=== PATIENT | male | born 1995 | race Caucasian/White ===

== ENCOUNTER 2019-05-13 16:44 | Emergency (ER) | payer OTHER, SELFPAY ==
[2019-05-13 16:45] VITALS: BP 144/41; PULSE 114; RESP 15; TEMP 36.9; O2SAT 98; BMI 28.0
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
[2019-05-13] MEDS: fentaNYL 100 MCG/2 ML Ampul 50 MCG IM (17:24)
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
[2019-05-13 17:45] VITALS: BP 160/62; PULSE 96; RESP 16; O2SAT 97
[2019-05-13 18:00] VITALS: BP 160/62; PULSE 96; RESP 16; O2SAT 97
[2019-05-13 19:01] VITALS: RESP 14
[2019-05-13 19:41] VITALS: BP 140/83; PULSE 85; RESP 15; O2SAT 98
== END 2019-05-13 19:42 | disposition home or self-care (01) ==
PROVIDERS: Emergency Provider Physician Assistant Medical
DX: S00.81XA Abrasion of other part of head, initial encounter (principal); V86.49XA Person injured while boarding or alighting from other special all-terrain or other off-road motor vehicle, initial encounter; Y93.I9 Activity, other involving external motion; Y92.9 Unspecified place or not applicable; Y99.8 Other external cause status; M54.2 Cervicalgia; M25.551 Pain in right hip; M54.5 Low back pain
CPT/HCPCS: 70450; 72100; 72125; 73502; 96372; 99282

== ENCOUNTER 2019-05-19 21:17 | Emergency (ER) | payer OTHER, SELFPAY ==
[2019-05-19 21:18] VITALS: BP 164/81; PULSE 123; RESP 18; TEMP 36.5; O2SAT 99; BMI 29.3
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
[2019-05-19] MEDS: Naproxen 500 MG Tablet PO (21:40)
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
[2019-05-19 22:18] VITALS: RESP 16
== END 2019-05-19 22:18 | disposition home or self-care (01) ==
PROVIDERS: Emergency Provider Emergency Medicine
DX: S40.021A Contusion of right upper arm, initial encounter (principal); V86.95XA Unspecified occupant of 3- or 4- wheeled all-terrain vehicle (ATV) injured in nontraffic accident, initial encounter; Y93.I9 Activity, other involving external motion; Y92.9 Unspecified place or not applicable
CPT/HCPCS: 73060; 73080; 73090; 99283

== ENCOUNTER 2019-11-12 18:52 | Emergency (ER) | payer OTHER, SELFPAY ==
[2019-11-12 18:53] VITALS: BP 146/90; PULSE 99; RESP 16; TEMP 36.3; O2SAT 100; BMI 25.8
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
--- NOTE | 2019-11-12 19:01 | ED.VIS.UPPEX ---
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 He had pain immediately but it was mild. The next day, at work, he was doing lots of repetitive motions with his right hand/wrist, and the pain has significantly been worse since then. Now whenever he moves his wrist he can feel creaking along with pain. [id number]. Past Medical History - Allergies and Home Meds Allergies/Adverse Reactions: Allergies No Known Allergies Allergy (Verified 11/12/19 18:53) Primary Care Physician: Care Physician,No Primary [Primary Care Provider] - Past Medical History: None Surgical History: no surgical history Smoking Status: Never smoker Review of Systems General: Denies: Chills, Fever, Sweats Musculoskeletal: Reports: Extremity Pain. Denies: Swelling Skin: Denies: Rash, Wounds Neurological: Denies: Headache, Weakness, Numbness Physical Exam Vital Signs/Narrative: Vital Signs Temp Pulse Resp BP Pulse Ox 11/12/19 18:53 97.3 F L 99 16 146/90 H 100 General: Well nourished, Well developed, - - Well-appearing no distress Head: Normocephalic, Atraumatic Extremeties: Limited range of motion of the right wrist due to pain. Able to supinate and pronate, but this creates significant pain as well. There is no tenderness at the distal radius or ulna, however there is tenderness in the area of the extensor carpi radialis tendon, associated ligaments, and the area of the carpus, but there is no scaphoid tenderness or pain with axial loading of the thumb. No bony tenderness throughout the hand or fingers. No deformities or swelling. Normal pulse, neurovascular intact distally. Skin: Normal color, No rash, No Trauma Neurological: Alert, Oriented x3, Cranial nerves II-XII grossly intact, Normal Strength, Normal Sensation, Normal Gait Psychological: Normal affect, Normal Mood Diagnostic/Tx/Re-eval Clinical Impression(s) from Imaging Studies Wrist X-Ray 11/12/19 19:00 IMPRESSION: No acute fracture or dislocation. There is no major interval change. Electronically Signed: Manjit Singh DO at 19:22 EDT Tel [phone], Service support , - Medical Decision Making X-rays unremarkable, patient is reassured. His history and exam are consistent with a sprain. The creaking he is feeling is probably fluid from inflammation. I recommend anti-inflammatories and a Velcro splint which he was given. ED Disposition - Plan for ED Patient: Disposition: Home or Assisted Living Diagnosis: Right wrist sprain Instructions: ED Sprain Wrist Prescriptions: Ibuprofen 600 mg PO Q8H PRN #20 tab PRN Reason: pain Prescription Printed Referrals: Morro Cota DO [STAFF PHYSICIAN] - 10-14 Days if not better
== END 2019-11-12 19:53 | disposition home or self-care (01) ==
PROVIDERS: Emergency Provider Emergency Medicine
DX: S63.501A Unspecified sprain of right wrist, initial encounter (principal); W31.89XA Contact with other specified machinery, initial encounter; Y93.89 Activity, other specified; Y92.9 Unspecified place or not applicable
CPT/HCPCS: 73110; 99283

== ENCOUNTER 2020-01-13 18:17 | Inpatient (IN) | payer OTHER, SELFPAY ==
[2020-01-13 18:18] VITALS: BP 143/102; PULSE 104; RESP 16; TEMP 36.6; O2SAT 98; BMI 26.6
--- NOTE | 2020-01-13 18:35 | CT_ITS ---
STUDY: CT ABDOMEN AND PELVIS WITHOUT CONTRAST REASON FOR EXAM: Male, 25 years old. LEFT FLANK PAIN X 1 HOUR RADIATION DOSAGE (If Supplied By Facility): CTDIvol = ( 6.42 ) mGy, DLP = ( 636.75 ) mGycm TECHNIQUE: Transaxial images were obtained from the dome of the diaphragm to the symphysis pubis without oral contrast, and without intravenous contrast. Sagittal and coronal images were reconstructed. Individualized dose optimization techniques were used for this CT. COMPARISON: None. FINDINGS: The visualized lung bases are unremarkable. The visualized portions of the heart are within normal limits. Normal liver. Normal gallbladder and extrahepatic biliary system. Normal spleen. Normal pancreas. Normal bilateral adrenal glands. There is a 3 mm calculus of the distal left ureter on image 148 with mild left hydronephrosis. There are calculi in the bilateral kidneys measuring up to 4.6 mm. Normal visualized stomach. Normal small intestine. Normal colon. The appendix is visualized and appears normal. Normal abdominal aorta. Normal inferior vena cava. Normal retroperitoneum. Normal urinary bladder. Normal abdominal wall. There is a Schmorl''s node of the anterior inferior L2 endplate degenerative disc narrowing at L2-L3, stable. CT/Abdomen/Pelvis without Cont IMPRESSION: Distal left ureter calculus (3 mm) with mild hydronephrosis. Bilateral nephrolithiasis. Electronically Signed: Fernie Mcclelland MD ([place]) at 19:24 EST , Service support ,
[2020-01-13 18:39] LABS: Mucous, Urine 0 SEEN /hpf (<or=2+); Squamous Epithelial Cells - UA 0 SEEN /hpf (0-5)
[2020-01-13 18:43] LABS: Absolute Lymphocyte Count 2.89 X10^3/uL (0.83-4.51); Absolute Neutrophil Count 7.3 X10^3/uL (2.0-7.7); Basophil# 0.04 X10^3/uL; Basophil% 0.4 % (0-1); Color, Urine Yellow (Yellow); Eosinophil# 0.08 X10^3/uL; Eosinophils% 0.7 % (0-5); Glucose, Dipstick Normal (Normal); Hematocrit 43.7 % (40-54); Ketone-Dipstick Negative (Negative); Leukocyte Esterase-Dipstick Negative /ul (Negative); Lymphocyte # 2.89 X10^3/ul (4.0); Lymphocyte % 25.9 % (19-41); Mean Corp Hgb Conc 34.3 g/dL (32-36); Mean Corpuscular Hgb 31.7 pg (27.0-32.0); Mean Corpuscular Volume 92.4 fL (80-94); Mean Platelet Vol. 9.6 fl (6.2-12.0); Monocyte# 0.83 X10^3/uL; Monocyte% 7.4 % (0-10); NRBC Flagged by Analyzer 0 % (0-5); Neutrophil % 65.3 % (47-70); Nitrite-Dipstick Negative (Negative); Occult Blood-Urine 250 /ul (Negative); Platelet Count 311 K/mm3 (150-450); Protein-Dipstick 15 mg/dl (Negative); RBC Distribution Width SD 40.7 fl (35.1-43.9); Red Blood Count 4.73 M/mm3 (4.6-6.2); Specific Gravity, Urine 1.015 (1.002-1.030); Urine Bilirubin Dipstick Negative (Negative); Urine Clarity Clear (Clear); Urine Urobilinogen Normal (Normal); Urine pH 6.5 (5.0 - 8.0); White Blood Count 11.2 K/mm3 (4.4-11.0)
[2020-01-13] MEDS: 0.9% Normal Saline 1,000 ML 250 ML IV (18:46)
[2020-01-13] MEDS: Morphine 4 MG/ML Syringe IV ×2 (18:47→21:26)
[2020-01-13] MEDS: Ketorolac 15 MG/ML Vial IV (18:47)
[2020-01-13] MEDS: Ondansetron 4 MG/2 ML Vial IV (18:47)
[2020-01-13 18:49] LABS: Bacteria 1+ /hpf (None Seen); Red Blood Cells-Urine 0-5 SEEN /hpf (0-5); White Blood Cells 25-50 SEEN /hpf (0-5)
[2020-01-13 18:54] LABS: Anion Gap 5 (5-15); BUN 16 mg/dL (7-18); BUN/Creat Ratio 12.3 RATIO (10-20); Calcium,Total 9.3 mg/dL (8.5-10.1); Chloride 109 mmol/L (98-107); EST Glomerular Filtration Rate 72 mL/min (>60); Est Glom Filt Rate - Afr Amer 87 mL/min (>60); Estimated Creatinine Clearance 87.62 ml/min; Glucose 112 mg/dL (74-106); Sodium Level 143 mmol/L (136-145)
--- NOTE | 2020-01-13 19:14 | ED.VIS.GEN ---
History of Present Illness Chief Complaint: Flank Pain Informant: Patient Onset: Hours Context: Sudden Onset Timing: Continuous, Waxes and wanes Quality: Pain Location: Left flank Current Severity: Severe Maximum Severity: Severe Worsened by: Nothing Relieved by: Nothing Associated Symptoms: Nausea and urgency Narrative: Patient is a 25-year-old male presents with acute colicky left flank pain that radiates to the left lower quadrant with urgency and nausea. He has no history of renal or ureterolithiasis. He denies dysuria or hematuria. He denies testicular pain. He denies trauma, rash or any skin lesions. He denies prior history of pain similar to what he is experiencing now. He denies fever, chills or night sweats. Prior similar symptoms: No Recent Illness/Hospitalization: No - Past Medical History (1) No significant past medical history Status: Acute Past Medical History - Allergies and Home Meds Allergies/Adverse Reactions: Allergies No Known Allergies Allergy (Verified 01/13/20 18:20) Primary Care Physician: Care Physician,No Primary [Primary Care Provider] - Prior records reviewed: No Surgical History: no surgical history Lives: Alone Smoking Status: Never smoker Alcohol: None Drugs: None Review of Systems General: Reports: Sweats. Denies: Chills, Fever, Malaise, Subjective, Weight loss Eyes: Denies: Visual changes - bilaterally, Blurred Vision - bilaterally ENT: Denies: Rhinorrhea, Sore throat Cardiovascular: Denies: Chest pain, Palpitations Respiratory: Denies: Dyspnea, Cough, Dyspnea on exertion Gastrointestinal: Reports: Abdominal pain, Nausea. Denies: Vomiting, Diarrhea, Melena, Hematochezia Genitourinary: Reports: - - Positive urgency. Denies: Dysuria, Hematuria, Frequency Musculoskeletal: Reports: Back pain. Denies: Myalgias, Arthralgias, Neck pain, Swelling, Extremity Pain Skin: Denies: Rash, Wounds Neurological: Denies: Headache, Weakness Hematologic: Denies: Easy bruising, Easy bleeding Physical Exam Vital Signs/Narrative: Vital Signs Temp Pulse Resp BP Pulse Ox 01/13/20 18:18 97.9 F 104 H 16 143/102 H 98 Inital Vital Signs reviewed: Yes General: Well nourished, Well developed, Acute Distress Head: Normocephalic, Atraumatic Eyes: Perrl, EOMI ENT: Moist mucous membranes, No rhinorrhea Neck: Supple, Nontender Cardiovascular: Regular rate, Regular rhythm, No murmurs, Normal S1, Normal S2 Respiratory: No distress, CTA bilaterally, Chest nontender Abdomen: Soft, Nontender, Nondistended, Normal bowel sounds, No masses Back: Nontender, Normal Inspection, CVA tenderness Extremities: Nontender, No edema Skin: Normal color, No rash, No Trauma. Negative for: Cyanosis, Diaphoresis, Jaundice Neurological: Alert, Oriented x3, Cranial nerves II-XII grossly intact, Normal Strength, Normal Sensation Psychological: Normal affect, Normal Mood Diagnostic/Tx/Re-eval Impressions Abdomen/Pelvis CT 01/13/20 18:35 IMPRESSION: Distal left ureter calculus (3 mm) with mild hydronephrosis. Bilateral nephrolithiasis. Electronically Signed: Fernie Mcclelland MD ([place]) at 19:24 EST , Service support , 01/13/20 18:35 Abdomen/Pelvis without Cont [CT] Stat Laboratory Results 01/13/20 01/13/20 01/13/20 18:35 18:35 18:35 WBC 11.2 H RBC 4.73 Hgb 15.0 Hct 43.7 MCV 92.4 MCH 31.7 MCHC 34.3 RDW Std Deviation 40.7 RDW Coeff of Timothy 12.0 Plt Count 311 MPV 9.6 Immature Gran % (Auto) 0.300 Neut % (Auto) 65.3 Lymph % (Auto) 25.9 [place] % (Auto) 7.4 Eos % (Auto) 0.7 Baso % (Auto) 0.4 Absolute Neuts (auto) 7.3 Absolute Lymphs (auto) 2.89 Nucleated RBC % 0 Sodium 143 Potassium 4.0 Chloride 109 H Carbon Dioxide 29.0 Anion Gap 5 BUN 16 Creatinine 1.30 Estim Creat Clear Calc 87.62 Est GFR (MDRD) Af Amer 87 Est GFR (MDRD) Non-Af 72 BUN/Creatinine Ratio 12.3 Glucose 112 H Calcium 9.3 Urine Color Yellow Urine Clarity Clear Urine pH 6.5 Ur Specific [place] 1.015 Urine Protein 15 H Urine Glucose (UA) Normal Urine Ketones Negative Urine Occult Blood 250 H Urine Nitrite Negative Urine Bilirubin Negative Urine Urobilinogen Normal Ur Leukocyte Esterase Negative Urine RBC 0-5 SEEN Urine WBC 25-50 SEEN Ur Squamous Epith Cells 0 SEEN Urine Bacteria 1+ Urine Mucus 0 SEEN White count still elevated which may be due to pain. Urine does reveal pyuria and bacteria. Culture was sent. He was treated with IV antibiotics. On reassessment at 2039. Patient appears uncomfortable. He states the pain is up to an 8. Will give additional IV medication and consult urology for admission. - Medical Decision Making Patient presents with abrupt left flank pain concern patient has obstructing ureteral stone. CT of the abdomen pelvis without contrast was ordered as well as appropriate blood work and UA. He was medicated with 50 mg of Toradol IV push, 4 mg of morphine IV push and 4 mg of Zofran IV push. ED Disposition - Plan for ED Patient: Disposition: Acute Care [facility] Diagnosis: Hydronephrosis with urinary obstruction due to ureteral calculus, Urinary tract infection Referrals: Care Physician,No Primary [Primary Care Provider] -
[2020-01-13] MEDS: Tamsulosin HCl 0.4 MG Capsule PO (21:27)
[2020-01-13] MEDS: Ceftriaxone 1 GM/50 ML BAG IV (21:27)
[2020-01-13 21:35] VITALS: BP 142/80; PULSE 88; RESP 18; TEMP 37.2; O2SAT 99
[2020-01-13 22:05] VITALS: BMI 26.0
[2020-01-13 22:07] VITALS: BP 130/85; PULSE 79; RESP 16; TEMP 36.4; O2SAT 98
[2020-01-13 22:20] VITALS: BMI 26.1
[2020-01-13] MEDS: 0.9% Normal Saline 1,000 ML 150 ML IV (22:56)
[2020-01-14] MEDS: Morphine 2 MG/ML Syringe IV ×2 (01:19→05:58)
[2020-01-14 03:00] VITALS: BP 122/74; PULSE 66; RESP 16; TEMP 36.5; O2SAT 100
[2020-01-14] MEDS: 0.9% Normal Saline 1,000 ML 150 ML IV (04:51)
[2020-01-14] MEDS: Ketorolac 15 MG/ML Vial IV (06:00)
--- NOTE | 2020-01-14 06:00 | RAD_ITS ---
STUDY: X-RAY - ABDOMEN/PELVIS REASON FOR EXAM: Male, 25 years old. LT SIDED KIDNEY STONE TECHNIQUE: Single AP view of the abdomen / pelvis. COMPARISON: None. FINDINGS: Normal visualized lung bases. There is a moderate amount of colonic fecal material. 3 mm calculus is seen in the lower pole calyx of the left kidney. Normal soft tissue structures. Normal visualized osseous structures. RAD/Abdomen Single View IMPRESSION: 3 mm calculus is seen in the inferior pole calyx of the left kidney. Electronically Signed: Edgar Singh, at 13:44 EST , Service support ,
--- NOTE | 2020-01-14 07:25 | HP.PCM_ITS ---
Problem List (1) Hydronephrosis with urinary obstruction due to ureteral calculus Status: Acute History of Present Illness Date of Admission: 01/13/20 Chief Complaint: Small kidney stone The patient is a 25 year old male presented to the emergency room with severe pain from a 3 mm stone distal right ureter he was admitted for pain control as his pain which is out of control emergency room KUB today no clear stone seen on my review of the KUB he is doing much better this morning not sure if he is passed a stone but I think he can go home with pain medicine to expect expectantly watch and passed the stone. Past Medical History Allergies No Known Allergies Allergy (Verified 01/13/20 18:20) Home Medications: Ambulatory Orders Medication Instructions Recorded NK 01/13/20 Surgical History: no surgical history Lives: Alone Smoking Status: Never smoker Tobacco Use: Non-smoker Alcohol: None Drugs: None Review of Systems Constitutional: Denies: Chills, Fever, Weight Change HEENT: Denies: Head Aches, Sinus Congestion, Sinus Drainage Cardiovascular: Denies: Chest Pain, Palpitations Respiratory: Denies: Cough, Shortness of breath at rest, Sputum production Gastrointestinal: Denies: Abdominal Pain, Nausea, Vomiting Genitourinary: Denies: Dysuria Musculoskeletal: Denies: Joint Pain, Joint Tenderness Skin: Denies: Rash, Wounds Neurological: Denies: Numbness, Tingling, Focal weakness Psychiatric: Denies: Anxiety, Depression, Homicidal Ideations, Suicidal Ideations Hematologic/ Lymphatic: Denies: Easy Bruising, Easy Bleeding VTE Information - Inpt Only VTE Present on Admission: No Patient Problems: Active and Suspected Problems No significant past medical history (Acute) Hydronephrosis with urinary obstruction due to ureteral calculus (Acute) Urinary tract infection (Acute) - Physical Exam Vitals/I&O's: Vital Signs Temp Pulse Resp BP Pulse Ox 97.7 F L 66 16 122/74 H 100 01/14/20 03:00 01/14/20 03:00 01/14/20 03:00 01/14/20 03:00 01/14/20 03:00 Oxygen Delivery Method Room Air Weight: 80.1 kg Body Mass Index (BMI) 26.0 Intake and Output for Last 24 Hours 01/12/20 01/13/20 01/14/20 23:59 23:59 23:59 Intake Total 1050 / 1550 1737.5 / 1737.5 Output Total 1900 / 1900 Balance 1050 / 450 -162.5 / -162.5 General: Alert, Oriented x3, Cooperative HEENT: Atraumatic, PERRLA, EOMI, Normocephalic Neck: Supple, No JVD, Negative Carotid Bruits Lungs: Clear to auscultation, Normal air movement Cardiovascular: Regular rate, No murmurs Abdomen: Bowel Sounds Present, Soft, Non Tender Extremities: No edema, Capillary Refill Less than 3 Seconds Skin: No rashes, No breakdown Musculoskeletal: No Tenderness to Palpation of Joints or Extremities Neurological: Cranial nerves II-XII grossly intact Psych/Mental Status: Normal Affect, Appropriate Laboratory Results 01/13/20 18:35: WBC 11.2 H, RBC 4.73, Hgb 15.0, Hct 43.7, MCV 92.4, MCH 31.7, MCHC 34.3, RDW Std Deviation 40.7, RDW Coeff of Timothy 12.0, Plt Count 311, MPV 9.6, Immature Gran % (Auto) 0.300, Neut % (Auto) 65.3, Lymph % (Auto) 25.9, [place] % (Auto) 7.4, Eos % (Auto) 0.7, Baso % (Auto) 0.4, Absolute Neuts (auto) 7.3, Absolute Lymphs (auto) 2.89, Nucleated RBC % 0 01/13/20 18:35: Sodium 143, Potassium 4.0, Chloride 109 H, Carbon Dioxide 29.0, Anion Gap 5, BUN 16, Creatinine 1.30, Estim Creat Clear Calc 87.62, Est GFR (MDRD) Af Amer 87, Est GFR (MDRD) Non-Af 72, BUN/Creatinine Ratio 12.3, Glucose 112 H, Calcium 9.3 01/13/20 18:35: Urine Color Yellow, Urine Clarity Clear, Urine pH 6.5, Ur Specific [place] 1.015, Urine Protein 15 H, Urine Glucose (UA) Normal, Urine Ketones Negative, Urine Occult Blood 250 H, Urine Nitrite Negative, Urine Bilirubin Negative, Urine Urobilinogen Normal, Ur Leukocyte Esterase Negative, Urine RBC 0-5 SEEN, Urine WBC 25-50 SEEN, Ur Squamous Epith Cells 0 SEEN, Urine Bacteria 1+, Urine Mucus 0 SEEN Current Medications Sodium Chloride () 250 mls @ 15 mls/hr IV .[id number] PRN PRN Reason: Saline Flush Sodium Chloride () 250 mls @ 15 mls/hr IV .[id number] PRN PRN Reason: Additional IVPB Infusion Sodium Chloride () 1,000 mls @ 150 mls/hr IV .[id number] [facility] Last Admin: 01/14/20 04:51 Dose: 150 mls/hr Documented by: Ketorolac Tromethamine (Ketorolac 15 Mg/Ml Vial) 15 mg IV Q6H PRN PRN PRN Reason: Pain Score 1-10 Stop: 01/18/20 22:32 Last Admin: 01/14/20 06:00 Dose: 15 mg Documented by: Morphine Sulfate (Morphine 2 Mg/Ml Syringe) 2 mg IV Q2H PRN PRN PRN Reason: Pain Score 6-10 Last Admin: 01/14/20 05:58 Dose: 2 mg Documented by: Ondansetron HCl (Ondansetron 4 Mg/2 Ml Vial) 4 mg IV Q6H PRN PRN PRN Reason: NAUSEA/VOMITING Sodium Chloride (0.9% Saline Lock 10 Ml Syringe) 10 - 40 ml IV UD PRN PRN Reason: SALINE FLUSH Tamsulosin HCl (Tamsulosin Hcl 0.4 Mg Capsule) 0.4 mg PO DAILY@1730 [facility] Assessment/Plan All Active Problems No significant past medical history (Acute) Hydronephrosis with urinary obstruction due to ureteral calculus (Acute) Urinary tract infection (Acute) Admitted for observation overnight discharged home this morning with pain medicine.
--- NOTE | 2020-01-14 07:35 | DCINST_ITS ---
Discharge Diet: No Restrictions Discharge Activity: Return to Normal Activity, May Not Drive - for 2 days. Additional Activity Instructions:: f you have a catheter, remove on ___. If you have any problems after catheter is removed, call [phone] and ask for your doctor to be paged. Please be aware that pain medications may cause nausea. You should typically eat light foods as you take your pain medication. Pain medication may cause constipation, if this is a problem for you, please discuss with your doctor. Allergies/Adverse Reactions: Allergies No Known Allergies Allergy (Verified 01/13/20 18:20) Medications to take at Discharge Hydrocodone/Acetaminophen [[place] 5-325 Tablet] 1 ea PO Q4H PRN PRN 7 Days #20 tab 01/14/20 The following prescriptions were given: Hydrocodone/Acetaminophen [[place] 5-325 Tablet] 1 ea PO Q4H PRN PRN 7 Days #20 tab PRN Reason: Pain 1-10 Or Fever Transmission [id number] Primary Care Physician: Care Physician,No Primary [Primary Care Provider] - Test Results: Test results from this visit will be discussed in further detail at your follow- up appointment, if applicable. Please Follow Up With: Jerod Charles MD When: in 2 weeks, please call to make an appointment.
[2020-01-14 08:29] VITALS: BP 144/75; PULSE 80; RESP 16; TEMP 36.6; O2SAT 98
== END 2020-01-14 08:46 | disposition home or self-care (01) | DRG 690 ==
LOC: ED 20:45 → MS3 21:10
PROVIDERS: Admitting Provider Urology; Emergency Provider Emergency Medicine; Visit Provider Urology
DX: N13.6 Pyonephrosis (principal)
CPT/HCPCS: 74018; 74176; 80048; 81001; 85025; 87077; 87086; 87088; 99284; J7030; J7050; J2405

== ENCOUNTER → 2020-01-21 09:00 | Outpatient (CLI) | payer OTHER, SELFPAY ==
[2020-01-13 22:05] VITALS: BMI 26.0
--- NOTE | 2020-01-21 09:01 | RAD_ITS ---
STUDY: X-RAY - ABDOMEN/PELVIS REASON FOR EXAM: Male, 25 years old. LEFT SIDE KIDNEY STONE, STILL HAVING PAIN TECHNIQUE: Single AP view of the abdomen / pelvis. COMPARISON: None. FINDINGS: Normal visualized lung bases. There is an abundance of fecal material throughout the colon. There is no demonstrated free abdominal air. There is a calcification projecting over the lower pole of the left kidney measuring approximately 3.5 mm and stable in the interval. Otherwise the visualized liver, spleen and kidneys are grossly normal in size and morphology. Normal soft tissue structures. Normal visualized osseous structures. RAD/Abdomen Single View IMPRESSION: Abundant fecal debris which may indicate constipation. Possible stone in the lower pole of the left kidney, stable. Otherwise unremarkable X-ray examination of the abdomen and pelvis. Electronically Signed: Fay Valdes MD at 0:21 EST , Service support ,
== END ==
PROVIDERS: Referring Provider Urology; Visit Provider Urology
DX: N20.0 Calculus of kidney (principal)
CPT/HCPCS: 74018

== ENCOUNTER → 2020-01-22 16:11 | Outpatient (CLI) | payer OTHER, SELFPAY ==
[2020-01-13 22:05] VITALS: BMI 26.0
--- NOTE | 2020-01-22 16:14 | CT_ITS ---
STUDY: CT ABDOMEN AND PELVIS WITHOUT CONTRAST REASON FOR EXAM: Male, 25 years old. L URETERAL STONE, LT FLANK PAIN RADIATION DOSAGE (If Supplied By Facility): CTDIvol = ( 6.32 ) mGy, DLP = ( 319.07 ) mGycm TECHNIQUE: Transaxial images were obtained from the dome of the diaphragm to the symphysis pubis without oral contrast, and without intravenous contrast. Sagittal and coronal images were reconstructed. Individualized dose optimization techniques were used for this CT. COMPARISON: 01/13/2020 FINDINGS: The visualized lung bases are unremarkable. The visualized portions of the heart are within normal limits. Normal liver. The gallbladder is contracted. Normal spleen. Normal pancreas. Normal bilateral adrenal glands. Bilateral nonobstructing renal stones. No hydronephrosis, ureteral stone, or ureteral dilatation. Normal visualized stomach. Normal small intestine. Normal colon. The appendix is visualized and appears normal. Normal abdominal aorta. Normal inferior vena cava. Normal retroperitoneum. Normal urinary bladder. There is a small umbilical hernia containing fat. Normal osseous structures. CT/Abdomen/Pelvis without Cont IMPRESSION: Bilateral nonobstructing renal stones. Electronically Signed: José Miguel Zamudio MD at 17:15 EST Tel , Service support ,
== END ==
PROVIDERS: Referring Provider Nurse Practitioner Adult Health; Visit Provider Nurse Practitioner Adult Health
DX: N20.1 Calculus of ureter (principal)
CPT/HCPCS: 74176

== ENCOUNTER 2020-03-15 10:05 | Emergency (ER) | payer OTHER, SELFPAY ==
[2020-03-15 10:05] VITALS: BP 165/83; PULSE 87; RESP 16; TEMP 36.6; O2SAT 100; BMI 28.0
--- NOTE | 2020-03-15 10:13 | RAD_ITS ---
STUDY: X-RAY - RIGHT HAND REASON FOR EXAM: Male, 25 years old. right hand pain, unsure of injury -- pain since Mar 03, lump between 1 and 2 mc TECHNIQUE: view(s) of the hand. COMPARISON: None. FINDINGS: Normal radiocarpal articulation. Normal distal radioulnar joint. Normal visualized carpal bones. Normal carpal articulations Normal carpometacarpal articulation of the thumb. Normal second through fifth carpometacarpal joints. Normal metacarpi. Normal metacarpophalangeal joint of the thumb. Normal interphalangeal joint of the thumb. Normal proximal and distal phalanges of the thumb. Normal metacarpophalangeal joints of the second through fifth fingers. Normal proximal and distal interphalangeal joints of the second through fifth fingers. Normal phalanges of the second through fifth fingers. The soft tissue structures are unremarkable. RAD/Hand Min 3 Views IMPRESSION: Normal x-ray examination of the hand. Electronically Signed: Rj Melo, at 10:30 EST Tel , Service support ,
--- NOTE | 2020-03-15 10:17 | ED.DCSUM_ITS ---
- ER Visit Summary Date of Service: 03/15/20 Chief Complaint: [Injury to right hand] History of Present Illness: The patient is a 25 M [presents to the emergency department with an injury to the right hand that occurred 12 days ago. Patient states that he was having his family's [employer] party on 03 March when he had been drinking heavily and woke up the next morning with pain in his right hand. Patient is unclear as to what happened. Patient was some ecchymosis and bruising to the hand. Patient continued to have a hard time at work due to the pain in the hand. Patient is right-hand dominant. He otherwise has no medical history. He denies any other injuries.] Physical Examination: [HEENT-PERRLA, EOMI. Cranial nerves II through XII grossly intact. TMs clear. Mucous membranes moist. No adenopathy. Cardiovascular-regular rate and rhythm without murmur or ectopy Lungs-clear to auscultation, chest wall stable without crepitus or subcu emphysema Abdomen-normoactive bowel sounds, soft, nontender, no rebound or rigidity, no peritoneal signs. Extremities-intact ?4, normal range of motion, normal pulses. Right hand- patient has tenderness palpation over the dorsum of the right hand mostly in the area of the base of the third metacarpal with some fullness and deformity in that area. Skin good range of motion flexion extension of the wrist and all digits. Neurovascular intact distally. Minimal discomfort about the distal radius. Minimal discomfort in the anatomical snuffbox.] Test Results: [Three-view x-rays of the right hand obtained and read by myself initially as some increased sclerosis at the base of the fourth metacarpal etiology uncertain however no other significant fractures noted. Radiology felt the x-rays looked normal.] Emergency Department Course and Treatment: [Patient was placed in a wrist splint was prefabricated] Treatment Plan: [Patient will be given work restrictions regarding his right hand but he is not sure that he will use them. Patient will be given referral to orthopedics for follow-up if symptoms do not improve.. Patient advised use ibuprofen for discomfort.] Disposition: [Discharged home in stable condition] Impression: [Right hand sprain] This note was generated with [employer] software. It may contain incorrect words, spelling, and punctuation that were not noted in review of the chart prior to signing ED Disposition - Plan for ED Patient: Referrals: Care Physician,No Primary [Primary Care Provider] -
--- NOTE | 2020-03-15 10:40 | ED.DEP ---
ED Disposition - Plan for ED Patient: Instructions: ED Hand Sprain Referrals: Care Physician,No Primary [Primary Care Provider] - Marco Antonio Ty DO [STAFF PHYSICIAN] - 5-7 Days
== END 2020-03-15 10:45 | disposition home or self-care (01) ==
LOC: ED 10:31
PROVIDERS: Emergency Provider Emergency Medicine
DX: S63.91XA Sprain of unspecified part of right wrist and hand, initial encounter (principal); X58.XXXA Exposure to other specified factors, initial encounter; Y93.9 Activity, unspecified; Y92.9 Unspecified place or not applicable; Y99.9 Unspecified external cause status
CPT/HCPCS: 73130; 99282

== ENCOUNTER → 2021-12-09 | Outpatient (CLI) | payer OTHER, SELFPAY ==
--- NOTE | 2021-12-09 12:19 | RAD_ITS ---
INDICATION: KIDNEY STONES EXAMINATION/TECHNIQUE: X-RAY - XR Abdomen 1 View COMPARISON: 01/21/2020 FINDINGS: BOWEL GAS PATTERN: Non-obstructive. No bowel or stomach distention. FREE AIR: Not assessed on a single supine view. ORGANOMEGALY: Not seen. CALCIFICATIONS: No abnormal calcifications observed. LOWER CHEST: No acute pathology. BONES AND SOFT TISSUES: No acute pathology. RAD/Abdomen Single View IMPRESSION: No renal or ureteral stones visualized. Electronically Signed: Teddy Crespo MD at 18:06 EDT ,
[2021-12-09 12:39] LABS: Bacteria 0 SEEN /hpf (None Seen); Mucous, Urine 0 SEEN /hpf (<or=2+); Red Blood Cells-Urine 0 SEEN /hpf (0-5); Squamous Epithelial Cells - UA 0 SEEN /hpf (0-5); White Blood Cells 0 SEEN /hpf (0-5)
[2021-12-09 13:17] LABS: Absolute Lymphocyte Count 2.21 X10^3/uL (0.83-4.51); Basophil# 0.03 X10^3/uL; Basophil% 0.4 % (0-1); Eosinophil# 0.09 X10^3/uL; Eosinophils% 1.1 % (0-5); Hemoglobin 16.3 g/dL (13.0-16.5); Lymphocyte # 2.21 X10^3/ul (0.83-4.51); Lymphocyte % 27.7 % (19-41); Mean Corp Hgb Conc 34.7 g/dL (32-36); Mean Corpuscular Hgb 31.6 pg (27.0-32.0); Mean Corpuscular Volume 91.1 fL (80-94); Mean Platelet Vol. 10.3 fl (6.2-12.0); Monocyte# 0.58 X10^3/uL; Monocyte% 7.3 % (0-10); NRBC Flagged by Analyzer 0 % (0-5); Neutrophil # 5.04 X10^3/uL (2.7-7.7); Neutrophil % 63.2 % (47-70); Platelet Count 285 K/mm3 (150-450); RBC Distribution Width CV 12.2 % (11.6-14.6); RBC Distribution Width SD 40.7 fl (35.1-43.9); Red Blood Count 5.16 M/mm3 (4.6-6.2)
[2021-12-09 13:19] LABS: Color, Urine Yellow (Yellow); Glucose, Dipstick Normal (Normal); Ketone-Dipstick Negative (Negative); Leukocyte Esterase-Dipstick Negative /ul (Negative); Nitrite-Dipstick Negative (Negative); Occult Blood-Urine 10 /ul (Negative); Protein-Dipstick 15 mg/dl (Negative); Urine Bilirubin Dipstick Negative (Negative); Urine Clarity Clear (Clear); Urine Urobilinogen Normal (Normal)
[2021-12-09 14:02] LABS: ALB/GLOB Ratio 0.9 RATIO (0.9-2.4); AST(SGOT) 19 U/L (15-37); Alanine Aminotransfer ALT/SGPT 32 U/L (16-61); Albumin, Serum 3.9 g/dL (3.2-5.0); Alkaline Phosphatase 79 U/L (45-117); Anion Gap 6 (5-15); BUN 16 mg/dL (7-18); BUN/Creat Ratio 15.2 RATIO (10-20); Calcium,Total 9.4 mg/dL (8.5-10.1); Chloride 106 mmol/L (98-107); Cholesterol 338 mg/dL (200); Creatinine, Serum 1.05 mg/dL (0.70-1.30); EST Glomerular Filtration Rate 91 mL/min (>60); Est Glom Filt Rate - Afr Amer 110 mL/min (>60); Globulin 4.2 g/dL (2.2-4.2); Glucose 90 mg/dL (74-106); High Density Lipoprotein 41 mg/dL; Potassium 4.3 mmol/L (3.5-5.1); Protein, Total 8.1 g/dL (6.4-8.2); Sodium Level 139 mmol/L (136-145); Triglycerides 180 mg/dL; Very Low Density Lipoprotein 36 mg/dL (5-40)
[2021-12-10 14:43] LABS: Microalbumin,Random Urine 8.1 mg/L (NO RANGE EST.); Microalbumin:Creatinine Ratio 5.9 mg/g CRE (<30 mg/g CRE)
[2021-12-16 08:38] LABS: Renin, Plasma 13.287 ng/mL/hr (0.167-5.380)
== END | disposition home or self-care (01) ==
PROVIDERS: PCP Internal Medicine; Visit Provider Internal Medicine
DX: N20.0 Calculus of kidney (principal); I10 Essential (primary) hypertension
CPT/HCPCS: 36415; 74018; 80053; 80061; 81001; 82043; 82570; 84244; 85025

== ENCOUNTER → 2021-12-16 | Outpatient (CLI) | payer SELFPAY ==
[2021-12-30 16:09] LABS: Metanephrine, Ur 100 ug/L (Undefined); Metanephrines, 24Ur 120 ug/24 hr (58-276); Normetanephrines, 24Ur 330 ug/24 hr (110-553); Normetanephrines, Ur 275 ug/L (Undefined)
[2021-12-31 17:26] LABS: Aldosterone, 24Ur < 3.00 ug/24 hr (0.00-19.00); Aldosterone, Ur < 2.50 ug/L (Not Estab.)
== END | disposition home or self-care (01) ==
LOC: LAB.FUTURE 11:17 → LAB 11:36
PROVIDERS: PCP Internal Medicine; Visit Provider Internal Medicine
DX: I10 Essential (primary) hypertension (principal)
CPT/HCPCS: 81050; 82088; 83835

== ENCOUNTER → 2021-12-28 | Outpatient (CLI) | payer OTHER, SELFPAY ==
[2022-01-03 20:07] LABS: Dopamine, UR 120 ug/L (Undefined); Epinephrine, 24Ur 7 ug/24 hr (0-20); Epinephrine, Ur 3 ug/L (Undefined); Norepinephrine, 24Ur 75 ug/24 hr (0-135); Norepinephrine, Ur 34 ug/L (Undefined); VMA, 24UR 5.7 mg/24 hr (0.0-7.5); VMA, UR 2.6 mg/L (Undefined)
[2022-01-05 18:31] LABS: Dopamine, 24Ur 264 ug/24 hr (0-510)
== END | disposition home or self-care (01) ==
PROVIDERS: PCP Internal Medicine; Referring Provider Internal Medicine; Visit Provider Internal Medicine
DX: I10 Essential (primary) hypertension (principal)
CPT/HCPCS: 81050; 82384; 84585